=== PATIENT | female | born 1985 | race Caucasian/White ===

== ENCOUNTER 2020-10-21 08:06 | Emergency (ER) | payer OTHER, SELFPAY ==
[2020-10-21 08:16] VITALS: BP 121/84; PULSE 70; RESP 16; TEMP 36; O2SAT 100
[2020-10-21 08:22] VITALS: BP 121/84; PULSE 70; RESP 16; TEMP 36; O2SAT 100
--- NOTE | 2020-10-21 08:24 | ED.GENADULT ---
HPI - General Adult General Chief complaint: Dental/Oral Stated complaint: tooth pain/sinus infection Time Seen by Provider: 10/21/20 08:24 Source: patient and RN notes reviewed Mode of arrival: ambulatory Limitations: no limitations History of Present Illness HPI narrative: 35-year-old female presents with complaints of dental pain for the past 2 days. ?Alyssa reports she was treated at a local dentist office on Thursday10/15/2020 given 800mg of Ibuprofen and Clindamycin for dental complaints and an exposed nerve, called on Thursday10/18/20 due to increasing pain and instructed to seek care at local [facility], pain continues today. ?Alyssa reports increasing pain with treatment. Ibuprofen today at 06:00 without relief. ?Denies any drainage. ?No fever. ?No jaw swelling. ?No neck swelling. ?No limitation with speaking or swallowing. ?Has a history of dental caries. ?Patient reports recent dental care, scheduled appointment 11/10/20 for tooth extraction. ?No dental trauma. ?No oral lesions. ?Exacerbating factors consist of chewing on the LT side, eating and drinking cold items. ?No relieving factors. ?No dentures or bridges. ?Tolerating liquids well. ?LMP 10/17/20. ?Remains active. ?The patient reports she has not been diagnosed with COVID-19. The patient reports she received 2 [employer] COVID-19 vaccines. The patient reports she is not waiting for the results of a COVID-19 lab test. The patient reports she does not have weakness, fatigue, or myalgia. ?The patient reports she does not have a new or worsening cough or shortness of breath. ?The patient reports she does not have any rhinorrhea, congestion, loss of taste or smell, sore throat, and diarrhea. Denies recent traveling. ?Denies concerns for COVID-19 or exposures. ?At this time, the patient is not suspected of having COVID-19. Some parts of this dictation were generated by voice recognition software and may contain typographical and/or grammatical inaccuracies. Related Data Home Medications Medication Instructions Recorded Confirmed clindamycin HCl 300 mg PO TID 10/21/20 10/21/20 ibuprofen 800 mg PO DAILY 10/21/20 10/21/20 Allergies Allergy/AdvReac Type Severity Reaction Status Date / Time latex Allergy Intermediate Hives Verified 10/21/20 08:17 adhesive Allergy Unknown Hives Unverified 10/21/20 08:17 Penicillins Allergy Unknown Hives Verified 10/21/20 08:17 Review of Systems Review of Systems: CONSTITUTIONAL: Denies fever, chills, sweats. EYES: Denies visual changes, redness, discharge. ENT: Denies rhinorrhea, congestion, sore throat, otalgia. Complains of LT upper dental pain. CARDIOVASCULAR: Denies chest pain, palpitations, edema. RESPIRATORY: Denies dyspnea, wheezing, cough. GASTROINTESTINAL: Denies abdominal pain, nausea, vomiting, diarrhea. SKIN: Denies rash or itching. MUSCULOSKELETAL: Denies acute back pain, joint pain, or myalgia. NEUROLOGIC: Denies numbness or focal weakness. PSYCHIATRIC: Denies anxiety or depression. All systems reviewed & are unremarkable except as noted in HPI and below. [facility] Past Medical History Medical History (Updated 10/28/20 @ 16:17 by HOMER Diaz) delivery delivered HELLP syndrome Surgical History Surgical History (Updated 10/28/20 @ 16:17 by HOMER Diaz) H/O section X4 Family History Family History Mother Hypertension Father Patient's father is in good health Sibling Patient's sister is in good health Patient's brother is in good health Other Diabetes mellitus Family history of lung cancer Social History Social History (Updated 10/28/20 @ 16:19 by HOMER Diaz) Smoking status: Never smoker Tobacco type: cigarettes Second hand tobacco smoke exposure: No Alcohol intake: current Substance use: never Living arrangements: with family Occupation/Education: other Additional occupation/ed
== END 2020-10-21 08:53 | disposition home or self-care (01) ==
PROVIDERS: Emergency Provider Nurse Practitioner Family; PCP Family Medicine
DX: K08.89 Other specified disorders of teeth and supporting structures (principal); K02.9 Dental caries, unspecified; K04.7 Periapical abscess without sinus
CPT/HCPCS: 99213; G0463

== ENCOUNTER 2020-12-11 08:13 | Emergency (ER) | payer OTHER, SELFPAY ==
[2020-12-11 08:24] VITALS: BP 92/71; PULSE 69; RESP 16; TEMP 36.4; O2SAT 100
--- NOTE | 2020-12-11 08:24 | ED.FEMALEGU ---
HPI - Female Genitourinary General Chief complaint: Urogenital-Female Stated complaint: UTI Time Seen by Provider: 12/11/20 08:24 Source: patient and RN notes reviewed Mode of arrival: ambulatory Limitations: no limitations History of Present Illness HPI Narrative: 35-year-old female presents to the [facility] with complaints of a UTI. Patient states that she has had burning since yesterday, lower back pain. Denies abdominal pain or chest pain. No nausea vomiting or diarrhea. Denies fevers. MD elicited complaint: UTI Related Data Allergies Allergy/AdvReac Type Severity Reaction Status Date / Time latex Allergy Intermediate Hives Verified 12/11/20 08:36 adhesive Allergy Unknown Hives Unverified 12/11/20 08:36 Penicillins Allergy Unknown Hives Verified 12/11/20 08:36 Review of Systems Review of Systems: All systems reviewed & are unremarkable except as noted in HPI and below Constitutional: Constitutional: Reports no additional constitutional complaints Eyes: Eyes: Reports no additional eye complaints ENT: Reports system reviewed and no additional complaints, except as documented Cardiovascular: Cardiovascular: Reports no additional cardiovascular complaints Respiratory: Respiratory: Reports no additional respiratory complaints Gastrointestinal: Gastrointestinal: Reports no additional gastrointestinal complaints and Denies abdominal pain Genitourinary: Genitourinary: Reports as per HPI, Denies hematuria, Reports nocturia, Reports dysuria, Denies pelvic pain and Denies flank pain Musculoskeletal: Musculoskeletal: Reports as per HPI and Reports back pain (lower) Integumentary/Breasts: Skin/Breast: Reports system reviewed and no additional complaints, except as docu Neurologic: Reports system reviewed and no additional complaints, except as documented Psychiatric: Psychiatric: Reports no additional psychiatric complaints Allergic/Immunologic: Allergic/Immunologic: Reports no additional allergic/immunologic complaints [facility] Past Medical History Medical History delivery delivered HELLP syndrome Surgical History Surgical History H/O section X4 Family History Family History Mother Hypertension Father Patient's father is in good health Sibling Patient's sister is in good health Patient's brother is in good health Other Diabetes mellitus Family history of lung cancer Social History Social History (Reviewed 12/11/20 @ 08:25 by Noemy Aviles Smoking status: Never smoker Tobacco type: cigarettes Second hand tobacco smoke exposure: No Alcohol intake: current Substance use: never Additional occupation/education comments: homemaker Gender identity (if verbalized by the patient): Female Sexual Orientation (if Verbalized by the Patient): Straight or Heterosexual Comments At the time of my signature, I reviewed and agree with the nursing past medical, surgical, social, and family history. There is no relevant family history pertinent to the patient complaint. Exam Const: General: healthy appearing, no acute distress and alert Nutritional Appearance: well nourished and obese Orientation/consciousness: patient oriented x3 Limitations: no limitations HENMT: Head: normal to inspection Eyes: Pupils: Equal, round and reactive pupils present Neck: Neck: normal visual inspection, no lymphadenopathy and no meningeal signs Chest: Chest palpation & inspection: normal inspection of the chest Resp: Effort & Inspection: normal respiratory effort and no use of accessory muscles Auscultation: clear to auscultation bilaterally, no crackles, no rales, no rhonchi and no wheezes Cardio: Rate: regular rate Rhythm: regular rhythm GI: GI Palp: Yes Soft to palpation, No Tenderness to palpation present (GI), No Guarding due to palp
== END 2020-12-11 08:40 | disposition home or self-care (01) ==
PROVIDERS: Emergency Provider Nurse Practitioner; PCP Family Medicine
DX: N30.00 Acute cystitis without hematuria (principal)
CPT/HCPCS: 81003; 87086; 99213; G0463

== ENCOUNTER 2021-01-17 08:22 | Emergency (ER) | payer OTHER, SELFPAY ==
--- NOTE | 2021-01-17 08:28 | ED.FEMALEGU ---
HPI - Female Genitourinary General Chief complaint: Urogenital-Female Stated complaint: UTI Time Seen by Provider: 01/17/21 08:28 Source: patient, RN notes reviewed and old records reviewed Mode of arrival: ambulatory Limitations: no limitations History of Present Illness HPI Narrative: 35-year-old female presents to the [facility] with complaints of low back pain and urinary frequency. Patient states that her back pain never really got better. Her frequency did get better with antibiotic use. Denies nausea vomiting or diarrhea. Denies fevers. History of help syndrome during . Denies any other medical history. Has 4 small children does a lot of pushing pulling lifting. No numbness or tingling in extremities. No abdominal pain or chest pain. No burning with urination. No treatment prior to arrival MD elicited complaint: UTI Related Data Allergies Allergy/AdvReac Type Severity Reaction Status Date / Time latex Allergy Intermediate Hives Verified 01/17/21 08:33 adhesive Allergy Unknown Hives Unverified 01/17/21 08:33 Penicillins Allergy Unknown Hives Verified 01/17/21 08:33 Review of Systems Review of Systems: All systems reviewed & are unremarkable except as noted in HPI and below Constitutional: Constitutional: Reports no additional constitutional complaints Eyes: Eyes: Reports no additional eye complaints ENT: Reports system reviewed and no additional complaints, except as documented Respiratory: Respiratory: Reports no additional respiratory complaints Genitourinary: Genitourinary: Reports as per HPI and Reports nocturia Musculoskeletal: Musculoskeletal: Reports as per HPI and Reports back pain Integumentary/Breasts: Skin/Breast: Reports system reviewed and no additional complaints, except as docu Neurologic: Reports system reviewed and no additional complaints, except as documented Psychiatric: Psychiatric: Reports no additional psychiatric complaints Allergic/Immunologic: Allergic/Immunologic: Reports no additional allergic/immunologic complaints PMF Past Medical History Medical History delivery delivered HELLP syndrome Surgical History Surgical History H/O section X4 Family History Family History Mother Hypertension Father Patient's father is in good health Sibling Patient's sister is in good health Patient's brother is in good health Other Diabetes mellitus Family history of lung cancer Social History Social History Smoking status: Never smoker Tobacco type: cigarettes Second hand tobacco smoke exposure: No Alcohol intake: current Substance use: never Additional occupation/education comments: homemaker Gender identity (if verbalized by the patient): Female Sexual Orientation (if Verbalized by the Patient): Straight or Heterosexual Comments At the time of my signature, I reviewed and agree with the nursing past medical, surgical, social, and family history. There is no relevant family history pertinent to the patient complaint. Exam Const: General: healthy appearing, no acute distress and alert Nutritional Appearance: well nourished and obese Orientation/consciousness: patient oriented x3 Limitations: no limitations HENMT: Head: normal to inspection Ears: external ears normal Eyes: Pupils: Equal, round and reactive pupils present Neck: Neck: normal visual inspection, no lymphadenopathy and no meningeal signs Chest: Chest palpation & inspection: normal inspection of the chest Resp: Effort & Inspection: normal respiratory effort and no use of accessory muscles Auscultation: clear to auscultation bilaterally, no crackles, no rales, no rhonchi and no wheezes Cardio: Rate: regular rate Rhythm: regular rhythm GI: GI Palp: Yes Soft to
[2021-01-17 08:36] VITALS: BP 124/86; PULSE 72; RESP 16; TEMP 37; O2SAT 99
== END 2021-01-17 08:58 | disposition home or self-care (01) ==
PROVIDERS: Emergency Provider Nurse Practitioner; PCP Family Medicine
DX: M54.50 Low back pain, unspecified (principal)
CPT/HCPCS: 81003; 99213; G0463

== ENCOUNTER 2021-05-05 08:14 | Emergency (ER) | payer OTHER, SELFPAY ==
[2021-05-05 08:23] VITALS: BP 117/82; PULSE 79; RESP 18; TEMP 36.7; O2SAT 100
--- NOTE | 2021-05-05 08:29 | ED.URI ---
HPI - URI/Sore Throat General Chief Complaint: Upper Respiratory Infection Stated Complaint: Cough,Runny Nose Time Seen by Provider: 05/05/21 08:25 Source: patient, family, RN notes reviewed and old records reviewed Mode of arrival: ambulatory Limitations: no limitations History of Present Illness HPI Narrative: 36-year-old female presents to the [facility] with complaints of 10 days of cough, sinus congestion. Has tried to kidney [id number] products which is not helping her. Denies any fevers, chest pain, abdominal pain. No nausea vomiting or diarrhea. MD elicited complaint: cough, rhinorrhea, nasal congestion and sinus pain Related Data Allergies Allergy/AdvReac Type Severity Reaction Status Date / Time latex Allergy Intermediate Hives Verified 05/05/21 08:37 adhesive Allergy Unknown Hives Unverified 05/05/21 08:37 Penicillins Allergy Unknown Hives Verified 05/05/21 08:37 Review of Systems Review of Systems: All systems reviewed & are unremarkable except as noted in HPI and below Constitutional: Constitutional: Reports no additional constitutional complaints, Denies chills, Denies fever(s) and Denies headache(s) Eyes: Eyes: Reports no additional eye complaints ENT: Reports as per HPI, Denies vertigo, Denies dizziness, Denies headache(s), Reports nasal congestion, Reports sinus pressure and Denies sore throat Cardiovascular: Cardiovascular: Reports no additional cardiovascular complaints, Denies chest pain, Denies syncope, Denies rapid heart rate and Denies dyspnea Respiratory: Respiratory: Reports as per HPI, Reports cough, Denies dyspnea and Denies wheezing Gastrointestinal: Gastrointestinal: Reports no additional gastrointestinal complaints, Denies abdominal pain, Denies diarrhea, Denies nausea and Denies vomiting Musculoskeletal: Musculoskeletal: Reports no additional musculoskeletal complaints and Denies numbness Integumentary/Breasts: Skin/Breast: Reports system reviewed and no additional complaints, except as docu Neurologic: Reports system reviewed and no additional complaints, except as documented, Denies vertigo, Denies dizziness, Denies syncope, Denies headache(s), Denies focal weakness and Denies numbness Psychiatric: Psychiatric: Reports no additional psychiatric complaints Allergic/Immunologic: Allergic/Immunologic: Reports no additional allergic/immunologic complaints and Denies wheezing PMFSH Past Medical History Medical History delivery delivered HELLP syndrome Surgical History Surgical History H/O section X4 Family History Family History Mother Hypertension Father Patient's father is in good health Sibling Patient's sister is in good health Patient's brother is in good health Other Diabetes mellitus Family history of lung cancer Social History Social History Smoking status: Never smoker Tobacco type: cigarettes Second hand tobacco smoke exposure: No Alcohol intake: current Substance use: never Additional occupation/education comments: homemaker Gender identity (if verbalized by the patient): Female Sexual Orientation (if Verbalized by the Patient): Straight or Heterosexual Comments At the time of my signature, I reviewed and agree with the nursing past medical, surgical, social, and family history. There is no relevant family history pertinent to the patient complaint. Exam Const: General: cooperative, healthy appearing, no acute distress, well developed and alert Nutritional Appearance: well nourished and obese Orientation/consciousness: patient oriented x3 Limitations: no limitations HENMT: Head: normal to inspection Ears: external ears normal, EAC's normal and TM abnormal with fluid behind the TM bilateral General no
== END 2021-05-05 09:04 | disposition home or self-care (01) ==
PROVIDERS: Emergency Provider Nurse Practitioner; PCP Family Medicine
DX: J40 Bronchitis, not specified as acute or chronic (principal)
CPT/HCPCS: 99213; G0463

== ENCOUNTER 2021-05-11 08:01 | Emergency (ER) | payer OTHER, SELFPAY ==
--- NOTE | 2021-05-11 08:08 | ED.URI ---
HPI - URI/Sore Throat General Chief Complaint: Upper Respiratory Infection Stated Complaint: uri Time Seen by Provider: 05/11/21 08:05 Source: patient and RN notes reviewed History of Present Illness HPI Narrative: Patient is a 36-year-old female who presents the urgent care with complaints of persistent symptoms since her last visit. Patient was given steroids, antibiotics, inhaler, antihistamines. Patient denies of any fever. States that she still feels terrible . Patient states that she has felt that something has been in her throat. Patient states that she read on [employer] to drink Coca-Cola , which did not help with the lump in her throat. Patient states that today is her last day of doxycycline and she is taking the medications that she has been prescribed consistently. Patient denies of any new symptoms. No other acute complaints. Denies of ill contacts. No acute distress noted. Patient has not followed up with her doctor. Patient aware of the plan of care. Some parts of this dictation were generated by voice recognition software and may contain typographical and/or grammatical inaccuracies. Related Data Allergies Allergy/AdvReac Type Severity Reaction Status Date / Time latex Allergy Intermediate Hives Verified 05/11/21 08:05 adhesive Allergy Unknown Hives Verified 05/11/21 08:05 Penicillins Allergy Unknown Hives Verified 05/11/21 08:05 Review of Systems Review of Systems: CONSTITUTIONAL: Denies fever, chills, or sweats. EYES: Denies visual changes, redness, or discharge. ENT: Denies rhinorrhea, congestion, otalgia. Reports of sore throat CARDIOVASCULAR: Denies chest pain, palpitations, or edema. RESPIRATORY: Denies cough or dyspnea. GASTROINTESTINAL: Denies abdominal pain, nausea, vomiting, or diarrhea. GENITOURINARY: Denies dysuria or hematuria. SKIN: Denies rash or itching. MUSCULOSKELETAL: Denies back pain, joint pain, or myalgia. NEUROLOGIC: Denies headache, numbness, or weakness. All other systems reviewed are negative, except as documented in HPI. [facility] Past Medical History Medical History delivery delivered HELLP syndrome Surgical History Surgical History H/O section X4 Family History Family History Mother Hypertension Father Patient's father is in good health Sibling Patient's sister is in good health Patient's brother is in good health Other Diabetes mellitus Family history of lung cancer Social History Social History Smoking status: Never smoker Tobacco type: cigarettes Second hand tobacco smoke exposure: No Alcohol intake: current Substance use: never Additional occupation/education comments: homemaker Gender identity (if verbalized by the patient): Female Sexual Orientation (if Verbalized by the Patient): Straight or Heterosexual Comments At the time of my signature, I reviewed and agree with the nursing past medical, surgical, social, and family history. There is no relevant family history pertinent to the patient complaint. Exam Narrative: GENERAL: This is a well-nourished, well-developed patient, in no apparent distress. HEAD: normocephalic, atraumatic. EYES: PERRL. Sclera clear/white. Vision is grossly intact. EARS: External ears normal, auditory canals clear and without drainage, TMs normal without perforation. Hearing grossly intact. NOSE: External nose normal with no obvious nasal discharge, nares without redness, no rhinorrhea. THROAT: Mucous membranes moist NECK: Neck supple SKIN: warm, intact with no suspicious lesions or rash, good texture and turgor. NEURO: awake, alert, and oriented to person, place and time. There were no obvious focal neurologic abnormalities. EXTREMITIES: No clubbing, cyanosis, or edema. C
[2021-05-11 08:11] VITALS: BP 124/63; PULSE 93; RESP 16; TEMP 36.6; O2SAT 99
== END 2021-05-11 08:25 | disposition left against medical advice (07) ==
PROVIDERS: Emergency Provider Nurse Practitioner Family; PCP Family Medicine
DX: J02.9 Acute pharyngitis, unspecified (principal)
CPT/HCPCS: 99211; G0463

== ENCOUNTER 2021-06-19 08:39 | Emergency (ER) | payer OTHER, SELFPAY ==
[2021-06-19 08:49] VITALS: BP 132/77; PULSE 84; RESP 20; TEMP 36.6; O2SAT 100
--- NOTE | 2021-06-19 08:50 | ED.URI ---
HPI - URI/Sore Throat General Chief Complaint: Upper Respiratory Infection Stated Complaint: cough Time Seen by Provider: 06/19/21 08:50 Source: patient and RN notes reviewed Mode of arrival: ambulatory Limitations: no limitations History of Present Illness HPI Narrative: 36-year-old female presented for complaint of sinus congestion, cough, postnasal drainage and occasional wheezing. Symptoms started about 3 days ago. cough worse at night. She states it feels like the last time she had bronchitis. She states her daughter has been sick about a week ago. Denies nausea, vomiting, diarrhea, fever or chills. She is vaccinated for COVID. She is not vaccinated for the flu. MD elicited complaint: cough Related Data Allergies Allergy/AdvReac Type Severity Reaction Status Date / Time latex Allergy Intermediate Hives Verified 06/19/21 08:41 adhesive Allergy Unknown Hives Verified 06/19/21 08:41 Penicillins Allergy Unknown Hives Verified 06/19/21 08:41 Review of Systems Review of Systems: CONSTITUTIONAL: Endorses malaise, denies chills, sweats, fever EYES: Denies visual changes, redness, or discharge ENT: Reports rhinorrhea, congestion, sinus pain, otalgia, sore throat CARDIOVASCULAR: Denies chest pain, palpitations, edema RESPIRATORY: Reports cough, post nasal drainage. Denies dyspnea GASTROINTESTINAL: Denies abdominal pain, nausea, vomiting, diarrhea SKIN: Denies rash or itching MUSCULOSKELETAL: Endorses myalgia NEUROLOGIC: Denies headache PMFSH Past Medical History Medical History delivery delivered HELLP syndrome Surgical History Surgical History H/O section X4 Family History Family History Mother Hypertension Father Patient's father is in good health Sibling Patient's sister is in good health Patient's brother is in good health Other Diabetes mellitus Family history of lung cancer Social History Social History Smoking status: Never smoker Tobacco type: cigarettes Second hand tobacco smoke exposure: No Alcohol intake: current Substance use: never Additional occupation/education comments: homemaker Gender identity (if verbalized by the patient): Female Sexual Orientation (if Verbalized by the Patient): Straight or Heterosexual Exam Narrative: GENERAL: Ill-appearing HEAD: Normocephalic EYES: conjunctivae clear ENT: Mucous membranes moist. TM pearly rivera with dull light reflex bilaterally; no tragal tenderness. Oropharynx erythematous without lesions or exudate, no drooling, no hoarseness, no trismus, uvula midline. NECK: Supple. No lymphadenopathy CHEST: Clear to auscultation, breath sounds equal. No wheezing, rhonchi, rales, or stridor. No respiratory distress HEART: Regular rate and rhythm. No murmur heard. SKIN: Warm, dry, no rash. NEURO: Alert and oriented x3. PSYCH: Normal mood and affect Course Course Emergency Course: Patient is aware of diagnosis, understands and agrees to treatment plan. Anticipatory guidance given. Patient agrees to follow-up as directed and is aware of reasons to seek care at the emergency department. Portions of this record may have been created with voice recognition software Level of Care: Express Care Visit Vital Signs Vital signs: reviewed MDM - URI/Sore Throat MDM Narrative Medical decision making narrative: Pt declines flu test since she is out of the window for tamiflu. She is advised to f/u with PCP given her recurrent episodes of bronchitis. She is advised on supportive treatment. Differential Diagnosis Differential diagnosis: Likely upper respiratory infection, sinusitis, viral infection, bronchitis and influenza Discharge Plan Discharge Clinical Impression: Bronchitis Patient Disposition
== END 2021-06-19 09:05 | disposition home or self-care (01) ==
PROVIDERS: Emergency Provider Nurse Practitioner Family; PCP Family Medicine
DX: J40 Bronchitis, not specified as acute or chronic (principal)
CPT/HCPCS: 99213; G0463

== ENCOUNTER 2022-02-10 08:24 | Emergency (ER) | payer OTHER, SELFPAY ==
[2022-02-10 08:45] VITALS: BP 120/76; PULSE 67; RESP 12; TEMP 36.2; O2SAT 100
--- NOTE | 2022-02-10 08:47 | ED.SKABFB ---
HPI - Skin/Abscess/Foreign Bdy General Chief complaint: Skin/Abscess/Foreign Body Stated complaint: Wound on Abdomen Time Seen by Provider: 02/10/22 08:47 Source: patient, RN notes reviewed and old records reviewed Mode of arrival: ambulatory Limitations: no limitations History of Present Illness HPI narrative: 31 year female presents to the [facility] with complaints red raised area that she noticed about a week ago. Tried scrubbing yesterday and noticed it became more red and inflamed last night. Small fluctuant area noted to the area. Left lower quadrant under the pannus Denies fevers. Related Data Allergies Allergy/AdvReac Type Severity Reaction Status Date / Time latex Allergy Intermediate Hives Verified 02/10/22 08:50 adhesive Allergy Unknown Hives Verified 02/10/22 08:50 Penicillins Allergy Unknown Hives Verified 02/10/22 08:50 Review of Systems Review of Systems: All systems reviewed & are unremarkable except as noted in HPI and below Constitutional: Constitutional: Reports no additional constitutional complaints Eyes: Eyes: Reports no additional eye complaints ENT: Reports system reviewed and no additional complaints, except as documented Cardiovascular: Cardiovascular: Reports no additional cardiovascular complaints, Denies chest pain and Denies dyspnea Respiratory: Respiratory: Reports no additional respiratory complaints, Denies chest congestion, Denies cough and Denies dyspnea Gastrointestinal: Gastrointestinal: Reports no additional gastrointestinal complaints, Denies abdominal pain, Denies nausea and Denies vomiting Musculoskeletal: Musculoskeletal: Reports no additional musculoskeletal complaints Integumentary/Breasts: Skin/Breast: Reports as per HPI Neurologic: Reports system reviewed and no additional complaints, except as documented Psychiatric: Psychiatric: Reports no additional psychiatric complaints Allergic/Immunologic: Allergic/Immunologic: Reports no additional allergic/immunologic complaints [facility] Past Medical History Medical History (Updated 02/10/22 @ 10:56 by Noemy Churchill APRN) Anxiety disorder, unspecified delivery delivered Dietary counseling and surveillance (09/04/15) Generalized anxiety disorder HELLP syndrome Other viral warts Overweight (06/04/15) Rhinitis, chronic Tooth pain Surgical History Surgical History H/O section X4 Family History Family History Mother Hypertension Father Patient's father is in good health Sibling Patient's sister is in good health Patient's brother is in good health Other Diabetes mellitus Family history of lung cancer Social History Social History Smoking status: Never smoker Tobacco type: cigarettes Second hand tobacco smoke exposure: No Alcohol intake: current Substance use: never Additional occupation/education comments: homemaker Gender identity (if verbalized by the patient): Female Sexual Orientation (if Verbalized by the Patient): Straight or Heterosexual Comments At the time of my signature, I reviewed and agree with the nursing past medical, surgical, social, and family history. There is no relevant family history pertinent to the patient complaint. Exam Const: General: cooperative, healthy appearing, comfortable, no acute distress, well developed, alert and well nourished Nutritional Appearance: well nourished and obese Orientation/consciousness: patient oriented x3 Limitations: no limitations HENMT: Head: normal to inspection Ears: hearing grossly normal bilaterally and external ears normal Face/Nose/Sinus: Normal external nose present, Normal nares present, Normal nasal mucous membranes and turbinates present and normal facial exam Face and sinus: normal facial exam Mouth: Yes Normal oral and palatal mucosa
== END 2022-02-10 09:08 | disposition home or self-care (01) ==
PROVIDERS: Emergency Provider Nurse Practitioner; PCP Family Medicine
DX: L03.311 Cellulitis of abdominal wall (principal); L02.211 Cutaneous abscess of abdominal wall
CPT/HCPCS: 10160; 87070; 87147; 87181; 87186; 87205; 99213; G0463

== ENCOUNTER 2022-06-16 15:21 | Emergency (ER) | payer OTHER, SELFPAY ==
[2022-06-16 15:30] VITALS: BP 122/76; PULSE 84; RESP 16; TEMP 36.7; O2SAT 99
--- NOTE | 2022-06-16 16:15 | ED.URI ---
HPI - URI/Sore Throat General Chief Complaint: Upper Respiratory Infection Stated Complaint: Sinus Time Seen by Provider: 06/16/22 15:54 Source: patient and RN notes reviewed Mode of arrival: ambulatory Limitations: no limitations History of Present Illness HPI Narrative: Patient presents today complaining of a 3-4 day history of headache, nasal congestion, photophobia. She currently her pain 7/10. Believe she has a sinus infection. She has been taking Tylenol cold and Sinus without much relief. Denies cough, fever, sore throat. She is also complaining of a possible infection to her nose piercing. She got her nose pierced 3 weeks ago on the right side and states 3 days ago it became sore. She contacted the peer sore and was instructed to use saline to clean the inside and outside portion of the nose and states that when she clean the inside of the nose with a Q-tip she had some drainage. She currently rates this pain 5/10. Related Data Allergies Allergy/AdvReac Type Severity Reaction Status Date / Time latex Allergy Intermediate Hives Verified 06/16/22 15:50 adhesive Allergy Unknown Hives Verified 06/16/22 15:50 Penicillins Allergy Unknown Hives Verified 06/16/22 15:50 Review of Systems Review of Systems: CONSTITUTIONAL: Denies body aches, fever, chills, or sweats. EYES: Denies visual changes, redness, or discharge.+ photophobia ENT: Denies rhinorrhea,sore throat, or otalgia.+ congestion, infection to nose piercing CARDIOVASCULAR: Denies chest pain, palpitations, or edema. RESPIRATORY: Denies cough or dyspnea. GASTROINTESTINAL: Denies abdominal pain, nausea, vomiting, or diarrhea. GENITOURINARY: Denies dysuria or hematuria. SKIN: Denies rash, itching, or wounds. MUSCULOSKELETAL: Denies back pain, joint pain, or myalgia. NEUROLOGIC: Denies numbness, tingling, or weakness.+ headache PSYCH: Denies depression or anxiety. [facility] Past Medical History Medical History Anxiety disorder, unspecified delivery delivered Dietary counseling and surveillance (09/04/15) Generalized anxiety disorder HELLP syndrome Other viral warts Overweight (06/04/15) Rhinitis, chronic Tooth pain Surgical History Surgical History H/O section X4 Family History Family History Mother Hypertension Father Patient's father is in good health Sibling Patient's sister is in good health Patient's brother is in good health Other Diabetes mellitus Family history of lung cancer Social History Social History Smoking status: Never smoker Tobacco type: cigarettes Second hand tobacco smoke exposure: No Alcohol intake: current Substance use: never Living arrangements: with family 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 Please see nursing chart for further information. There is no relevant family history pertinent to the presenting complaint Exam Narrative: GENERAL: Well-appearing, well-nourished, and in no acute distress. HEAD: Normocephalic, atraumatic. EYES: EOMI. PERRL. + bilateral photophobia. No redness or drainage. Conjunctivae normal. ENT: Mucous membranes pink and moist. Nares congested. No rhinorrhea. TMs normal bilaterally. Throat normal. Uvula midline. Right nose piercing does not appear infected. There is slight edema surrounding the piercing on the exterior portion. Anterior right nare appears normal around the piercing without any obv
== END 2022-06-16 16:38 | disposition home or self-care (01) ==
PROVIDERS: Emergency Provider Nurse Practitioner; PCP Physician Assistant
DX: J30.9 Allergic rhinitis, unspecified (principal)
CPT/HCPCS: 99213; G0463

== ENCOUNTER 2022-08-16 13:36 | Emergency (ER) | payer OTHER, SELFPAY ==
[2022-08-16 13:52] VITALS: BP 126/77; PULSE 74; RESP 16; TEMP 36.9; O2SAT 99
--- NOTE | 2022-08-16 14:20 | ED.FEMALEGU ---
HPI - Female Genitourinary General Chief complaint: Urogenital-Female Stated complaint: UTI Source: patient and RN notes reviewed History of Present Illness HPI Narrative: 37 yo F Presents to urgent care with complaints of burning with urination, urinary frequency and urgency, and hematuria. Pt states her symptoms started 3 days ago but today is when the hematuria started. Pt does admit to falling on to her buttocks twice this past week; once from sitting on a bench that collapsed and the second from slipping on the driveway. Pt denies any significant pain from these falls but reports being sore in her lower back. Denies any flank pain, abdominal pain, fevers, chills, N/V/D. Related Data Allergies Allergy/AdvReac Type Severity Reaction Status Date / Time latex Allergy Intermediate Hives Verified 08/16/22 13:52 adhesive Allergy Unknown Hives Verified 08/16/22 13:52 Penicillins Allergy Unknown Hives Verified 08/16/22 13:52 Review of Systems Review of Systems: CONSTITUTIONAL: Denies fever, chills, or sweats. EYES: Denies visual changes, redness, or discharge. ENT: Denies otalgia and sore throat CARDIOVASCULAR: Denies chest pain, palpitations, or edema. RESPIRATORY: Denies cough or dyspnea. GASTROINTESTINAL: Denies abdominal pain, nausea, vomiting, or diarrhea. GENITOURINARY: dysuria or hematuria. SKIN: Denies rash or itching. MUSCULOSKELETAL: Denies back pain, joint pain, or myalgia. NEUROLOGIC: Denies headache, numbness, or weakness. Pertinent positives per HPI. [facility], [facility] Past Medical History Medical History Anxiety disorder, unspecified delivery delivered Dietary counseling and surveillance (09/04/15) Generalized anxiety disorder HELLP syndrome Other viral warts Overweight (06/04/15) Rhinitis, chronic Tooth pain Surgical History Surgical History H/O section X4 Family History Family History Mother Hypertension Father Patient's father is in good health Sibling Patient's sister is in good health Patient's brother is in good health Other Diabetes mellitus Family history of lung cancer Social History Social History Smoking status: Never smoker Tobacco type: cigarettes Second hand tobacco smoke exposure: No Alcohol intake: current Substance use: never Living arrangements: with family 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 There is no relevant family history pertinent to the patient complaint. Exam Narrative: GENERAL: This is a well-nourished, well-developed patient, in no apparent distress. HEAD: normocephalic, atraumatic. EYES: Sclera clear/white. Vision is grossly intact. EARS: External ears normal, auditory canals clear and without drainage, TMs normal without perforation. Hearing grossly intact. NOSE: External nose normal with no obvious nasal discharge, nares without redness, no rhinorrhea. THROAT: Mucous membranes moist, posterior pharynx clear. NECK: Neck supple, non-tender without lymphadenopathy, masses or thyromegaly. CARDIOVASCULAR: Regular rate and rhythm without murmurs, gallops, or rubs. RESPIRATORY: Clear to auscultation. Breath sounds equal bilaterally. No wheezes, rales, or rhonchi. GASTROINTESTINAL: Abdomen soft, non-tender, nondistended. Bowel sounds are active. No hepato-splenomegaly, or palpable masses. No guarding. SKIN: warm, intact with no suspicious lesions or rash, good texture and turgor. NEURO: a
== END 2022-08-16 14:47 | disposition home or self-care (01) ==
PROVIDERS: Emergency Provider Nurse Practitioner Family; PCP Family Medicine
DX: R31.9 Hematuria, unspecified (principal)
CPT/HCPCS: 81003; 87086; 99213; G0463

== ENCOUNTER 2023-04-28 19:02 | Emergency (ER) | payer OTHER, SELFPAY ==
--- NOTE | 2023-04-28 19:05 | ED.ANXIETY ---
HPI - Anxiety General Stated Complaint: Anxiety Time Seen by Provider: 04/28/23 19:04 Source: patient Mode of arrival: ambulatory Limitations: no limitations History of Present Illness HPI narrative: Alyssa is a 38-year-old female patient presenting to the clinic today with complaints of runny nose and nasal congestion that is been off and on for the past few days. She reports no known fever, chills, body aches, flu, chest pain, shortness of breath, or chest congestion. Related Data Allergies Allergy/AdvReac Type Severity Reaction Status Date / Time latex Allergy Intermediate Hives Verified 08/16/22 13:52 adhesive Allergy Unknown Hives Verified 08/16/22 13:52 Penicillins Allergy Unknown Hives Verified 08/16/22 13:52 Review of Systems Review of Systems: Pertinent positives per HPI. Patient denies any fever, chills, rash, headache, visual changes, dizziness, cough, sore throat, shortness of breath, chest pain, palpitations, nausea, vomiting, diarrhea, constipation, abdominal pain, or any urinary issues. PMFSH Past Medical History Medical History Anxiety disorder, unspecified delivery delivered Dietary counseling and surveillance (09/04/15) Generalized anxiety disorder HELLP syndrome Other viral warts Overweight (06/04/15) Rhinitis, chronic Tooth pain Surgical History Surgical History H/O section X4 Family History Family History Mother Hypertension Father Patient's father is in good health Sibling Patient's sister is in good health Patient's brother is in good health Other Diabetes mellitus Family history of lung cancer Social History Social History Smoking status: Never smoker Tobacco type: cigarettes Second hand tobacco smoke exposure: No Alcohol intake: current Substance use: never Living arrangements: with family 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 There is no relevant family history pertinent to the patient complaint. Exam Narrative: General: Well-developed, well nourished, in no apparent distress Head: Normocephalic, atraumatic Eyes: Pupils equally round and reactive to light bilaterally, EOM intact, sclera and conjunctive clear, no discharge, lids normal Ears: TMs intact and clear, ear canals clear, no drainage, grossly hearing normal. Nose: Nares patent, clear nasal discharge, mild inflammation, no sinus tenderness. Mouth: Oropharynx without lesions or masses, good dentition, MMM. Neck: Supple, trachea midline, no enlargement of anterior or posterior cervical nodes, no thyroid masses or goiter palpable. Cardio: Regular rate and rhythm, s1 and s2 normal, no murmur appreciated. Resp: Clear to auscultation bilaterally anteriorly and posteriorly, no rhonchi, rales, wheezing or rubs Course Course Emergency Course: Portions of this record may have been created with voice recognition software. Level of Care: Express Care Visit Vital Signs Vital signs: Vital signs reviewed MDM - Anxiety MDM Narrative Medical decision making narrative: At the time of visit patient is resting comfortably on the exam table. Patient appears to be nontoxic. Plan: I suspect patient has allergic rhinitis. Supportive measures were discussed with the patient and they voiced understanding discharge instructions and agrees to treatment plan. Return precautions reviewed Differential Diagnosis Differential diagnosis: Likely acute a
[2023-04-28 19:12] VITALS: BP 127/86; PULSE 107; RESP 16; TEMP 37.2; O2SAT 99
== END 2023-04-28 19:27 | disposition home or self-care (01) ==
PROVIDERS: Emergency Provider Nurse Practitioner Family; PCP Family Medicine
DX: J30.9 Allergic rhinitis, unspecified (principal)
CPT/HCPCS: 99211; G0463

== ENCOUNTER 2023-06-22 09:31 | Emergency (ER) | payer OTHER, MEDICAID, SELFPAY ==
--- NOTE | 2023-06-22 09:36 | ED.URI ---
HPI - URI/Sore Throat General Chief Complaint: Upper Respiratory Infection Stated Complaint: Cough Time Seen by Provider: 06/22/23 09:43 Source: patient, RN notes reviewed and old records reviewed Mode of arrival: ambulatory Limitations: no limitations History of Present Illness HPI Narrative: 38-year-old female presents to the [facility] with complaints of a cough, chills, generalized fatigue, sneezing and sore throat that started mid day yesterday. Did take NyQuil last night. No other treatment prior to arrival. Has not measured temperature. Onset (ago): day(s) (1, less than 24 hours) Related Data Home Medications Medication Instructions Recorded Confirmed cetirizine 10 mg tablet 10 mg PO DAILY PRN Allergy Symptoms 06/22/23 06/22/23 clonazepam 1 mg tablet 1 mg PO BID 06/22/23 06/22/23 Allergies Allergy/AdvReac Type Severity Reaction Status Date / Time latex Allergy Intermediate Hives Verified 06/22/23 09:38 adhesive Allergy Unknown Hives Verified 06/22/23 09:38 Penicillins Allergy Unknown Hives Verified 06/22/23 09:38 Review of Systems Review of Systems: All systems reviewed & are unremarkable except as noted in HPI and below Constitutional: Constitutional: Reports as per HPI, Reports body ache(s), Reports chills and Reports fatigue Eyes: Eyes: Reports no additional eye complaints ENT: Reports as per HPI and Reports sore throat Cardiovascular: Cardiovascular: Reports no additional cardiovascular complaints, Denies chest pain and Denies dyspnea Respiratory: Respiratory: Reports as per HPI, Denies chest congestion, Reports cough and Denies dyspnea Gastrointestinal: Gastrointestinal: Reports no additional gastrointestinal complaints, Denies abdominal pain, Denies nausea and Denies vomiting Musculoskeletal: Musculoskeletal: Reports no additional musculoskeletal complaints Integumentary/Breasts: Skin/Breast: Reports system reviewed and no additional complaints, except as docu Neurologic: Reports system reviewed and no additional complaints, except as documented Psychiatric: Psychiatric: Reports no additional psychiatric complaints Allergic/Immunologic: Allergic/Immunologic: Reports no additional allergic/immunologic complaints PMFSH Past Medical History Medical History Anxiety disorder, unspecified delivery delivered Dietary counseling and surveillance (09/04/15) Generalized anxiety disorder HELLP syndrome Other viral warts Overweight (06/04/15) Rhinitis, chronic Tooth pain Surgical History Surgical History H/O section X4 Family History Family History Mother Hypertension Father Patient's father is in good health Sibling Patient's sister is in good health Patient's brother is in good health Other Diabetes mellitus Family history of lung cancer Social History Social History Smoking status: Never smoker Tobacco type: cigarettes Second hand tobacco smoke exposure: No Alcohol intake: current Substance use: never Living arrangements: with family 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 There is no relevant family history pertinent to the patient complaint. Exam Const: General: cooperative, healthy appearing, comfortable, no acute distress, well developed, alert and well nourished Nutritional Appearance: well nourished and obese Orientation/consciousness: patient oriented x3 Limitations: no limitations HENMT: Head: normal to inspection
[2023-06-22 09:46] VITALS: BP 108/76; PULSE 115; RESP 16; TEMP 37; O2SAT 100
== END 2023-06-22 10:10 | disposition home or self-care (01) ==
PROVIDERS: Emergency Provider Nurse Practitioner; PCP Family Medicine
DX: R09.82 Postnasal drip (principal); J06.9 Acute upper respiratory infection, unspecified; Z20.822 Contact with and (suspected) exposure to COVID-19; F41.1 Generalized anxiety disorder
CPT/HCPCS: 87081; 87426; 87804; 87880; 99213; G0463

== ENCOUNTER 2023-12-07 15:39 | Emergency (ER) | payer OTHER, MEDICAID, SELFPAY ==
[2023-12-07 15:48] VITALS: BP 120/78; PULSE 72; RESP 20; TEMP 36.7; O2SAT 100
--- NOTE | 2023-12-07 16:18 | ED.URI ---
HPI - URI/Sore Throat General Chief Complaint: Upper Respiratory Infection Stated Complaint: Cough Time Seen by Provider: 12/07/23 15:55 Source: patient Mode of arrival: ambulatory Limitations: no limitations History of Present Illness HPI Narrative: Alyssa is a 38-year-old female patient presenting to the clinic today with complaints of productive cough, sinus pressure, congestion, and wheezing. She reports that she has had symptoms for 10 days. She is coughing up green and yellow phlegm as well as blowing yellow and green phlegm out of her nose. 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 MD elicited complaint: cough, rhinorrhea, nasal congestion, sinus pain and other Related Data Allergies Allergy/AdvReac Type Severity Reaction Status Date / Time latex Allergy Intermediate Hives Verified 12/07/23 16:13 adhesive Allergy Unknown Hives Verified 12/07/23 16:13 Penicillins Allergy Unknown Hives Verified 12/07/23 16:13 Review of Systems Review of Systems: Pertinent positives per HPI. Patient denies any fever, chills, rash, visual changes, dizziness, shortness of breath, chest pain, palpitations, nausea, vomiting, diarrhea, constipation, abdominal pain, or any urinary issues. PMFSH Past Medical History Medical History Anxiety disorder, unspecified delivery delivered Dietary counseling and surveillance (09/04/15) Generalized anxiety disorder HELLP syndrome Other viral warts Overweight (06/04/15) Rhinitis, chronic Tooth pain Surgical History Surgical History H/O section X4 Family History Family History Mother Hypertension Father Patient's father is in good health Sibling Patient's sister is in good health Patient's brother is in good health Other Diabetes mellitus Family history of lung cancer Social History Social History Smoking status: Never smoker Tobacco type: cigarettes Second hand tobacco smoke exposure: No Alcohol intake: current Substance use: never Living arrangements: with family 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 There is no relevant family history pertinent to the patient complaint. Exam Narrative: General: Well-developed, well nourished, in no apparent distress Head: Normocephalic, atraumatic Eyes: Pupils equally round and reactive to light bilaterally, EOM intact, sclera and conjunctive clear, no discharge, lids normal Ears: TMs intact and congested, ear canals clear, no drainage, grossly hearing normal. Nose: Nares patent, yellow nasal discharge, moderate inflammation, maxillary sinus tenderness. Mouth: Oral pharynx without lesions or masses, good dentition, MMM. Postnasal drip Neck: Supple, trachea midline, no enlargement of anterior or posterior cervical nodes, no thyroid masses or goiter palpable. Cardio: Regular rate and rhythm, s1 and s2 normal, no murmur appreciated. Resp: Diminished in the bases, no rhonchi, rales, wheezing or rubs Course Course Emergency Course: Portions of this record may have been created with voice recognition software. Level of Care: Express Care Visit Vital Signs Vital signs: Vital Signs Temperature 36.7 C 12/07/23 15:48 Pulse Rate 72 12/07/23 15:48 Respiratory Rate 20 12/07/23 15:48 Blood Pressure 120/78 12/07/23 15:48 Pulse Oximetry 100 10/0
== END 2023-12-07 16:35 | disposition home or self-care (01) ==
PROVIDERS: Emergency Provider Nurse Practitioner Family; PCP Nurse Practitioner Family
DX: J40 Bronchitis, not specified as acute or chronic (principal); J01.00 Acute maxillary sinusitis, unspecified
CPT/HCPCS: 99213; G0463

== ENCOUNTER 2023-12-18 15:57 | Emergency (ER) | payer OTHER, MEDICAID, SELFPAY ==
[2023-12-18 16:11] VITALS: BP 122/75; PULSE 84; RESP 16; TEMP 37.2; O2SAT 99
--- NOTE | 2023-12-18 17:20 | ED.URI ---
HPI - URI/Sore Throat General Chief Complaint: Eye Problems Stated Complaint: sinus pressure, sore throat,cough Time Seen by Provider: 12/18/23 17:20 Source: patient and RN notes reviewed Mode of arrival: ambulatory Limitations: no limitations History of Present Illness MD elicited complaint: cough and sore throat Related Data Allergies Allergy/AdvReac Type Severity Reaction Status Date / Time adhesive Allergy Intermediate Hives Verified 12/18/23 17:03 latex Allergy Intermediate Hives Verified 12/18/23 17:03 Penicillins Allergy Intermediate Hives Verified 12/18/23 17:03 Review of Systems Review of Systems: CONSTITUTIONAL: Denies malaise, chills, sweats, or fever. EYES: Denies visual changes, redness, or discharge. ENT: Reports rhinorrhea, congestion, sinus pain, otalgia and sore throat. CARDIOVASCULAR: Denies chest pain, palpitations, or edema. RESPIRATORY: Reports cough. Denies dyspnea. GASTROINTESTINAL: Denies abdominal pain, nausea, vomiting, diarrhea SKIN: Denies rash or itching. MUSCULOSKELETAL: Denies myalgia. NEUROLOGIC: Denies headache. All systems reviewed & are unremarkable except as noted in HPI and below PMFSH Past Medical History Medical History Anxiety disorder, unspecified delivery delivered Dietary counseling and surveillance (09/04/15) Generalized anxiety disorder HELLP syndrome Other viral warts Overweight (06/04/15) Rhinitis, chronic Tooth pain Surgical History Surgical History H/O section X4 Family History Family History Mother Hypertension Father Patient's father is in good health Sibling Patient's sister is in good health Patient's brother is in good health Other Diabetes mellitus Family history of lung cancer Social History Social History Smoking status: Never smoker Tobacco type: cigarettes Second hand tobacco smoke exposure: No Alcohol intake: current Substance use: never Living arrangements: with family 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 There is no relevant family history pertinent to the presenting complaint Exam Narrative: GENERAL: Well-appearing, well-nourished, and in no acute distress. HEAD: Normocephalic EYES: PERRLA, conjunctivae clear ENT: Nares clear, turbinates edematous and erythematous, clear discharge. Mucous membranes moist. TM pearly rivera with dull light reflex bilaterally; no tragal tenderness. Oropharynx not erythematous without lesions. Tonsils not enlarged and without exudate, no drooling, no hoarseness, no trismus, uvula midline. NECK: Supple. No lymphadenopathy CHEST: Clear to auscultation, breath sounds equal. No wheezing, rhonchi, rales, or stridor. No respiratory distress, speaks in full sentences. HEART: Regular rate and rhythm. No murmur heard. SKIN: Warm, dry, no rash. NEURO: Alert and oriented x3. PSYCH: Normal mood and affect Course Course Emergency Course: Patient is aware of diagnosis, understands and agrees to treatment plan. Anticipatory guidance given. Patient agrees to follow-up as directed and is aware of reasons to seek care at the emergency department. Portions of this record may have been created with voice recognition software Level of Care: Express Care Visit Vital Signs Vital signs: Vital Signs Temperature 98.9 F 12/18/23 16:11 Pulse Rate 84 12/18/23 16:11 Respiratory Rate 16 12/18/23 16:11 Blood Pressure 122/75 12/18/23 16:11 Pulse Oximetry 99 12/18/23 16:11 Oxyg
--- NOTE | 2023-12-18 17:22 | ED.EYEPROB ---
HPI - Eye Problem General Chief complaint: Eye Problems Stated complaint: sinus pressure, sore throat,cough Time Seen by Provider: 12/18/23 17:20 Source: patient and RN notes reviewed Mode of arrival: ambulatory Limitations: no limitations History of Present Illness HPI Narrative: 38-year-old female presents with concern for right eyelid redness, itchiness. Reports this happened after she was outside at a pumpkin patch. She denies the eye itself is itchy, irritated, red. Denies drainage. She denies intervention. She also reports she was treated for bronchitis about a week ago and most symptoms have resolved but she continues have sinus pressure. She takes Claritin on a daily basis and she is taking Claritin for a long time. She reports she does have bad allergy issues. MD chief complaint: other (eyelid redness) Related Data Allergies Allergy/AdvReac Type Severity Reaction Status Date / Time adhesive Allergy Intermediate Hives Verified 12/18/23 17:03 latex Allergy Intermediate Hives Verified 12/18/23 17:03 Penicillins Allergy Intermediate Hives Verified 12/18/23 17:03 Review of Systems Review of Systems: CONSTITUTIONAL: Denies malaise, chills, sweats, or fever. EYES: Denies visual changes. Reports redness, irritation, discharge. ENT: Reports rhinorrhea, congestion. Denies otalgia or sore throat. SKIN: Reports left upper eyelid itching and redness with intermittent swelling NEUROLOGIC: Denies numbness, weakness, or headache. PSYCHIATRIC: Denies anxiety or depression. All systems reviewed & are unremarkable except as noted in HPI and below PMFSH Past Medical History Medical History Anxiety disorder, unspecified delivery delivered Dietary counseling and surveillance (09/04/15) Generalized anxiety disorder HELLP syndrome Other viral warts Overweight (06/04/15) Rhinitis, chronic Tooth pain Surgical History Surgical History H/O section X4 Family History Family History Mother Hypertension Father Patient's father is in good health Sibling Patient's sister is in good health Patient's brother is in good health Other Diabetes mellitus Family history of lung cancer Social History Social History Smoking status: Never smoker Tobacco type: cigarettes Second hand tobacco smoke exposure: No Alcohol intake: current Substance use: never Living arrangements: with family 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 There is no relevant family history pertinent to the presenting complaint Exam Narrative: GENERAL: Well-appearing, well-nourished, and in no acute distress. HEAD: Normocephalic, atraumatic. EYES: PERRLA, sclera clear, and EOMI. No nystagmus. Bilateral conjunctivae injected. Right Upper and lower eyelid unremarkable, no periorbital edema noted. Left upper eyelid erythematous with mild superficial edema ENT: Nares clear. Mucous membranes moist. TM pearly rivera with sharp light reflex bilaterally; no tragal tenderness. NECK: Supple. CHEST: No respiratory distress. Speaks in full sentences. HEART: Regular rate and rhythm. SKIN: Warm, dry, no visible rash. NEURO: Alert and oriented x3. PSYCH: Normal mood and affect Course Course Emergency Course: Patient is aware of diagnosis, understands and agrees to treatment plan. Anticipatory guidance given. Patient agrees to follow-up as directed and is aware of reasons to seek care at the emergency department. Portions of this r
== END 2023-12-18 17:39 | disposition home or self-care (01) ==
PROVIDERS: Emergency Provider Nurse Practitioner; PCP Nurse Practitioner Family
DX: H01.9 Unspecified inflammation of eyelid (principal); J30.9 Allergic rhinitis, unspecified
CPT/HCPCS: 99213; G0463

== ENCOUNTER 2024-01-23 16:41 | Emergency (ER) | payer OTHER, MEDICAID, SELFPAY ==
[2024-01-23 17:33] VITALS: BP 119/76; PULSE 78; RESP 20; TEMP 37; O2SAT 99
--- NOTE | 2024-01-23 17:50 | ED.SKABFB ---
HPI - Skin/Abscess/Foreign Bdy General Chief complaint: Skin/Abscess/Foreign Body Stated complaint: Right Hand Finger Pain Time Seen by Provider: 01/23/24 17:32 Source: patient and RN notes reviewed Mode of arrival: ambulatory Limitations: no limitations History of Present Illness HPI narrative: Patient presents today complaining of an infection around the you right 3rd fingernail x2 days that has been worsening since onset. Currently rates her pain 4/10. She has applied Prid Salve without relief. States she does bite her nails frequently. Related Data Allergies Allergy/AdvReac Type Severity Reaction Status Date / Time adhesive Allergy Severe burn Verified 01/23/24 17:50 latex Allergy Intermediate Hives Verified 01/23/24 17:03 Penicillins Allergy Intermediate Hives Verified 01/23/24 17:03 Review of Systems Review of Systems: CONSTITUTIONAL: Denies body aches, fever, chills, or sweats. EYES: Denies visual changes, redness, or discharge. ENT: Denies rhinorrhea, congestion, sore throat, or otalgia. CARDIOVASCULAR: Denies chest pain, palpitations, or edema. RESPIRATORY: Denies cough or dyspnea. GASTROINTESTINAL: Denies abdominal pain, nausea, vomiting, or diarrhea. GENITOURINARY: Denies dysuria or hematuria. SKIN: Denies rash, itching, or wounds. MUSCULOSKELETAL: Denies back pain, joint pain, or myalgia. + fingernail infection NEUROLOGIC: Denies headache, numbness, tingling, or weakness. PSYCH: Denies depression or anxiety. PMFSH Past Medical History Medical History Anxiety disorder, unspecified delivery delivered Dietary counseling and surveillance (09/04/15) Generalized anxiety disorder HELLP syndrome Other viral warts Overweight (06/04/15) Rhinitis, chronic Tooth pain Surgical History Surgical History H/O section X4 Family History Family History Mother Hypertension Father Patient's father is in good health Sibling Patient's sister is in good health Patient's brother is in good health Other Diabetes mellitus Family history of lung cancer Social History Social History Smoking status: Never smoker Tobacco type: cigarettes Second hand tobacco smoke exposure: No Alcohol intake: current Substance use: never Living arrangements: with family 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 Please see nursing chart for further information. There is no relevant family history pertinent to the presenting complaint Exam Narrative: GENERAL: Well-appearing, well-nourished, and in no acute distress. HEAD: Normocephalic, atraumatic. EYES: EOMI. No redness or drainage. Conjunctivae normal. ENT: Mucous membranes pink and moist. NECK: Normal AROM. CHEST: No respiratory distress. EXTREMITIES: Right 3rd finger: Moderate paronychia to the nail fold with green purulent material noted under the skin. No subungual abscess noted. Erythema noted proximal to the green material. Mildly tender to palpation. Distal sensation intact. Capillary refill normal. Full range of motion of the finger. No active drainage. SKIN: Warm, dry, no rash. Capillary refill normal. Normal skin turgor. NEURO: No focal deficits. Alert and oriented x3. Gait steady. PSYCH: Normal affect. No signs of depression or anxiety. Course Course Level of Care: Express Care Visit Vital Signs Vital signs: Vital Signs Temperature 98.6 F 01/23/24 17:33 Pulse Rate 78 01/23/24 17:33 Respiratory Rate 20 01/23/24 17:33 Blood Pressure 119/76 01/23/24 17:33 Pulse Oximetry 99 01/23/24 17:33 Oxygen Delivery Room Air 01/23/24 17:33 Temperature 98.6 F 01/23/24 17:33 Pulse Rate 78 01/23/24 17:33 Respiratory Rate 20 01/23/24 17:33 Blood Pressure 119/76 01/23/24 17:33 Pulse Oximetry 99 01/23/24 17:33 Oxygen Delivery Room Air 01/23/24 17:33 Reviewed Procedures Abscess I/D upper extremity: Date of Incision: 01/23/24 Time of Incision: 17:53 Side (if applicable): right (3rd finger paronychia) Local Anesthetic: none (Patient declined) Technique: incised with #11 blade Irrigation: No Packing used?: none I&D Results: Pus Abcess I&D Additional Comments: Patient tolerated procedure well MDM - Skin/Abscess/Foreign Bdy MDM Narrative Medical decision making narrative: Paronychia lanced and drained. Dressed with nonadherent dressing. Care instructions given. Anticipatory guidance given. Patient will be placed on a course of Bactrim Differential Diagnosis Differential diagnosis: Likely abscess of skin or subcutaneous tissue, cellulitis and other (Paronychia) Critical Care Time Critical Care Time Critical Care Time: No Discharge Plan Discharge Clinical Impression: Paronychia Patient Disposition: Home, Self-Care Condition: Stable Instructions: Antibiotic Form, Paronychia (ED) Additional Instructions: Your infection has min drained. Wash with soap and water daily and keep covered until scabbed over. Take the Bactrim as prescribed. Try to stop chewing your finger nails. Follow up with your PCP with any additional concern.s Prescriptions: New sulfamethoxazole-trimethoprim [Bactrim DS] 800-160 mg tablet 1 tablet PO Q12H 7 Days Qty: 14 0RF Follow-up/Referrals: PHYSICIAN,NUCLEAR PROCESS ENGINEER [Primary Care Provider] - Time of Disposition: 17:57
== END 2024-01-23 18:05 | disposition home or self-care (01) ==
PROVIDERS: Emergency Provider Nurse Practitioner
DX: L03.011 Cellulitis of right finger (principal)
CPT/HCPCS: 10060; 99213; G0463

== ENCOUNTER 2024-05-10 19:13 | Emergency (ER) | payer MEDICAID, SELFPAY ==
--- NOTE | ~2024-05-10 | XR_ITS ---
EXAMINATION: XR chest 2V Exam Date/Time: 05/10/2024 19:50 CDT HISTORY: cough x 4 days. Comparison: None. RESULT: Lines, tubes, and devices: None. Lungs and pleura: Clear. Cardiomediastinal silhouette: Normal. Other: No acute osseous or upper abdominal finding. IMPRESSION: No acute cardiopulmonary process. Reviewed, dictated and finalized at location K.
[2024-05-10 19:21] VITALS: BP 135/99; PULSE 96; RESP 16; TEMP 37.2; O2SAT 100
--- NOTE | 2024-05-10 19:54 | ED_ITS ---
HPI - URI/Sore Throat General Chief Complaint: Upper Respiratory Infection Stated Complaint: Sinus Time Seen by Provider: 05/10/24 19:55 Source: patient, RN notes reviewed and old records reviewed Mode of arrival: ambulatory Limitations: no limitations History of Present Illness HPI Narrative: 39-year-old female presents to the [facility] with complaints sinus congestion, cough, body aches that started 3-4 days ago. Reports that she has tried [id number] cold medicine. Related Data Allergies Allergy/AdvReac Type Severity Reaction Status Date / Time adhesive Allergy Severe burn Verified 05/10/24 19:41 Penicillins Allergy Severe Swelling Verified 05/10/24 19:41 of Lip/Tongue/Throat latex Allergy Intermediate Hives Verified 05/10/24 19:41 sulfamethoxazole (From Allergy Mild Itching Verified 05/10/24 19:41 Bactrim) trimethoprim (From Bactrim) Allergy Mild Itching Verified 05/10/24 19:41 Review of Systems Review of Systems: All systems reviewed & are unremarkable except as noted in HPI and below Constitutional: Constitutional: Reports no additional constitutional complaints ENT: Reports as per HPI Cardiovascular: Cardiovascular: Reports no additional cardiovascular complaints, Denies chest pain and Denies dyspnea Respiratory: Respiratory: Reports as per HPI, Denies chest congestion, Reports cough and Denies dyspnea Musculoskeletal: Musculoskeletal: Reports no additional musculoskeletal complaints Integumentary/Breasts: Skin/Breast: Reports system reviewed and no additional complaints, except as docu PMFSH Past Medical History Medical History Tooth pain Rhinitis, chronic Overweight (06/04/15) Other viral warts Generalized anxiety disorder Dietary counseling and surveillance (09/04/15) Anxiety disorder, unspecified delivery delivered HELLP syndrome Surgical History Surgical History H/O section X4 Family History Family History Mother Hypertension Father Patient's father is in good health Sibling Patient's sister is in good health Patient's brother is in good health Other Diabetes mellitus Family history of lung cancer Social History Social History Smoking status: Never smoker Tobacco type: cigarettes Second hand tobacco smoke exposure: No Alcohol intake: current Substance use: never Living arrangements: with family 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 There is no relevant family history pertinent to the patient complaint. Exam Const: General: cooperative, healthy appearing, comfortable, no acute distress, well developed, alert and well nourished Nutritional Appearance: well nourished and obese Orientation/consciousness: patient oriented x3 Limitations: no limitations HENMT: Head: normal to inspection Ears: hearing grossly normal bilaterally, external ears normal, TM's normal bilaterally, EAC's normal, mastoids normal and no periauricular adenopathy Face/Nose/Sinus: Normal external nose present, Normal nares present and No nasal discharge present Mouth: Yes Normal oral and palatal mucosa present, Yes lip normal, Yes tongue normal and Yes moist mucous membranes Throat: posterior oropharynx normal, uvula midline and no uvular edema Eyes: General: appearance normal, both eyes and all related structures Alignment and Position: alignment normal Neck: Neck: normal visual inspection, full ROM, no lymphadenopathy and no meningeal signs Chest: Chest palpation & inspection: normal inspection of the chest Resp: Effort & Inspection: normal respiratory effort and able to speak in complete sentences Auscultation: clear to auscultation bilaterally, no crackles, no rales, no rhonchi and no wheezes Cardio: Rate: regular rate Skin: General skin exam: normal color and no rashes or lesions noted Neuro: General: patient oriented x3, gait normal, moves all extremities and no meningeal signs Cognition (Neuro): normal cognition Speech: normal speech Gait exam (Neuro): Normal gait present Extrem: General: normal to inspection, full ROM, capillary refill normal and normal gait Psych: Appearance: grossly normal and well kempt Mental Status: mental status grossly normal Speech and movement: Normal speech and movement present and Clear speech present Affect: normal affect Attitude: cooperative Course Course Level of Care: Express Care Visit Vital Signs Vital signs: Vital Signs Temperature 98.9 F 05/10/24 19:21 Pulse Rate 96 05/10/24 19:21 Respiratory Rate 16 05/10/24 19:21 Blood Pressure 135/99 H 05/10/24 19:21 Pulse Oximetry 100 05/10/24 19:21 Oxygen Delivery Room Air 05/10/24 19:21 Temperature 98.9 F 05/10/24 19:21 Pulse Rate 96 05/10/24 19:21 Respiratory Rate 16 05/10/24 19:21 Blood Pressure 135/99 H 05/10/24 19:21 Pulse Oximetry 100 05/10/24 19:21 Oxygen Delivery Room Air 05/10/24 19:21 Reviewed MDM - URI/Sore Throat MDM Narrative Medical decision making narrative: Patient sitting comfortably in exam room. Nontoxic, vitals stable. Patient in no acute distress. Patient presents with 3-4 day history of viral URI symptoms. Patient is COVID positive. All other tests are negative. Patient appropriate for outpatient treatment with close follow-up Discharge instructions reviewed with patient, as well as provided in writing per nursing staff. The instructions also include specific and strict return/GO TO THE ER as well as f/u information. All questions have been answered, and the patient deny any further questions with discharge and discharge plan. Some parts of this dictation were generated by voice recognition software and ma y contain typographical and/or grammatical inaccuracies. Differential Diagnosis Differential diagnosis: Likely upper respiratory infection, otitis media, sinusitis, viral infection, bronchitis, influenza and pharyngitis Lab Data Labs: Lab Results 05/10/24 Range/Units 19:56 POC Influenza A Ag Negative (Negative) POC Influenza B Ag Negative (Negative) POC SARS CoV-2 Ag Positive (Negative) Reviewed Imaging Data Radiologist's impression: EXAMINATION: XR chest 2V Exam Date/Time: 05/10/2024 19:50 CDT HISTORY: cough x 4 days. Comparison: None. RESULT: Lines, tubes, and devices: None. Lungs and pleura: Clear. Cardiomediastinal silhouette: Normal. Other: No acute osseous or upper abdominal finding. IMPRESSION: No acute cardiopulmonary process. Critical Care Time Critical Care Time Critical Care Time: No Discharge Plan Discharge Clinical Impression: COVID-19 Patient Disposition: Home, Self-Care Condition: Stable Instructions: Antibiotic Form, COVID-19 (Coronavirus Disease 2019) (ED) Additional Instructions: Your chest x-ray did not show signs of a pneumonia today Your rapid COVID test was positive Your rapid flu test was negative Your symptoms are due to a viral illness, which is not treated with antibiotics. Typically viral infections last 7-10 days, can linger for couple of weeks. It is very important to treat your symptoms. Drink plenty of water, Gatorade, Pedialyte, ice pops or Jell-O. -Alternate Tylenol and Motrin per package directions for fever or pain. You can alternate every 4 hours -Antihistamine medication such as Zyrtec/Claritin/Radha during the day can help improve symptoms. -doing daily nasal irrigations can help relieve pressure your sinuses. Things like a Neti pot -Use Flonase twice a day for 5 days then daily to help reduce the inflammation and dry up your sinuses. -You can also use Mucinex. Be sure to drink plenty of water with this medication at least 8 ounces with every dose and it is important to drink 8 to 10 glasses of water per day. Water is a natural decongestant -Eat and drink things that are easy to swallow, like tea or soup, or popsicles. -Oral rinses such as: Salt water gargles and/or may use topical anesthetic (eg. Chloraseptic spray) or lozenges to relieve dryness or throat pain). -Frequent hand washing or hand workers compensation specialist is one of the best ways to prevent spread of infection. -Using a vaporizer or humidifier at night will also help thin secretions and help with coughing up phlegm. -Follow up with primary care provider in 7-10 days if condition is not improving - For new or worsening symptoms go directly to the nearest ER Patient Language: Brazilian Follow-up/Referrals: PHYSICIAN,GARAGEMAN [Primary Care Provider] - Stand Alone Forms: Work/School Release IP Time of Disposition: 20:15
[2024-05-10 19:58] LABS: EDCOVIDSCREEN Positive (Negative); EDINFLUASCREEN Negative (Negative); EDINFLUBSCREEN Negative (Negative)
== END 2024-05-10 20:19 | disposition home or self-care (01) ==
PROVIDERS: Emergency Provider Nurse Practitioner
DX: U07.1 COVID-19 (principal)
CPT/HCPCS: 71046; 87426; 87804; 99213; G0463

== ENCOUNTER 2024-10-21 08:23 | Emergency (ER) | payer BC, MEDICAID, SELFPAY ==
--- NOTE | 2024-10-21 08:29 | ED.DENTAL ---
HPI - Dental/Oral General Chief complaint: Dental/Oral Stated complaint: tooth pain/lump on right side of ear Time Seen by Provider: 10/21/24 08:29 Source: patient, RN notes reviewed and old records reviewed Mode of arrival: ambulatory Limitations: no limitations History of Present Illness HPI Narrative: 39-year-old female presents to the [facility] with right lower dental pain, right upper dental pain. Patient with very poor dentition. Has erythema to the upper and lower gingiva as well as decayed teeth. Patient worried on a lump that is next to her right ear as well. Related Data Allergies Allergy/AdvReac Type Severity Reaction Status Date / Time adhesive Allergy Severe burn Verified 10/21/24 08:42 Penicillins Allergy Severe Swelling Verified 10/21/24 08:42 of Lip/Tongue/Throat latex Allergy Intermediate Hives Verified 10/21/24 08:42 sulfamethoxazole (From Allergy Mild Itching Verified 10/21/24 08:42 Bactrim) trimethoprim (From Bactrim) Allergy Mild Itching Verified 10/21/24 08:42 Review of Systems Review of Systems: All systems reviewed & are unremarkable except as noted in HPI and below Constitutional: Constitutional: Reports no additional constitutional complaints ENT: Reports as per HPI Cardiovascular: Cardiovascular: Reports no additional cardiovascular complaints, Denies chest pain and Denies dyspnea Respiratory: Respiratory: Reports no additional respiratory complaints, Denies chest congestion, Denies cough and Denies dyspnea Musculoskeletal: Musculoskeletal: Reports no additional musculoskeletal complaints Integumentary/Breasts: Skin/Breast: Reports system reviewed and no additional complaints, except as docu PMFSH Past Medical History Medical History Tooth pain Rhinitis, chronic Overweight (06/04/15) Other viral warts Generalized anxiety disorder Dietary counseling and surveillance (09/04/15) Anxiety disorder, unspecified delivery delivered HELLP syndrome Surgical History Surgical History H/O section X4 Family History Family History Mother Hypertension Father Patient's father is in good health Sibling Patient's sister is in good health Patient's brother is in good health Other Diabetes mellitus Family history of lung cancer Social History Social History Smoking status: Never smoker Tobacco type: cigarettes Second hand tobacco smoke exposure: No Alcohol intake: current Substance use: never Living arrangements: with family 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 There is no relevant family history pertinent to the patient complaint. Exam Const: General: cooperative, healthy appearing, comfortable, no acute distress, well developed, alert and well nourished Nutritional Appearance: well nourished and obese Orientation/consciousness: patient oriented x3 Limitations: no limitations HENMT: Head: normal to inspection Ears: hearing grossly normal bilaterally, external ears normal, TM's normal bilaterally, EAC's normal, mastoids normal and other (Swollen lymph node preauricular) Face/Nose/Sinus: Normal external nose present and Normal nares present Mouth: Yes Normal oral and palatal mucosa present, Yes lip normal, Yes tongue normal and Yes moist mucous membranes Teeth and gingiva: gingiva abnormal edematous and poor dentition Throat: posterior oropharynx normal Eyes: General: appearance normal, both eyes and all related structures Alignment and Position: alignment normal Neck: Neck: normal visual inspection, full ROM, no lymphadenopathy and no meningeal signs Chest: Chest palpation & inspection: normal inspection of the chest Resp: Effort & Inspection: normal respiratory effort and able to speak in complete sentences Auscultation: clear to auscultation bilaterally, no crackles, no rales, no rhonchi and no wheezes Cardio: Rate: regular rate Skin: General skin exam: normal color and no rashes or lesions noted Neuro: General: patient oriented x3, gait normal, moves all extremities and no meningeal signs Cognition (Neuro): normal cognition Speech: normal speech Gait exam (Neuro): Normal gait present Extrem: General: normal to inspection, full ROM, capillary refill normal and normal gait Psych: Appearance: grossly normal and well kempt Mental Status: mental status grossly normal Speech and movement: Normal speech and movement present and Clear speech present Affect: normal affect Attitude: cooperative Course Course Level of Care: Express Care Visit Vital Signs Vital signs: Vital Signs Temperature 97.7 F 10/21/24 08:30 Pulse Rate 69 10/21/24 08:30 Respiratory Rate 20 10/21/24 08:30 Blood Pressure 123/66 10/21/24 08:30 Pulse Oximetry 99 10/21/24 08:30 Oxygen Delivery Room Air 10/21/24 08:30 Temperature 97.7 F 10/21/24 08:30 Pulse Rate 69 10/21/24 08:30 Respiratory Rate 20 10/21/24 08:30 Blood Pressure 123/66 10/21/24 08:30 Pulse Oximetry 99 10/21/24 08:30 Oxygen Delivery Room Air 10/21/24 08:30 Reviewed MDM - Dental/Oral MDM Narrative Medical decision making narrative: Patient sitting in exam room. Patient is nontoxic, vitals stable. Patient with very poor dentition. Concern for dental infection both upper and lower Patient appropriate for outpatient treatment with antibiotics, penicillin allergy, will prescribe clinda Discharge instructions reviewed with patient, as well as provided in writing per nursing staff. The instructions also include specific and strict return/GO TO THE ER as well as f/u information. All questions have been answered, and the patient deny any further questions with discharge and discharge plan. Some parts of this dictation were generated by voice recognition software and may contain typographical and/or grammatical inaccuracies. Differential Diagnosis Differential diagnosis: Likely gingival abscess, dental caries, toothache and dental abscess Critical Care Time Critical Care Time Critical Care Time: No Discharge Plan Discharge Clinical Impression: Toothache, Dental decay, Dental infection Patient Disposition: Home Condition: Stable Instructions: Antibiotic Form, Dental Abscess (ED) Additional Instructions: Finish the entire course of antibiotics While on antibiotics it is important that you take a probiotic or eat a yogurt a day to help reduce side effects Use mouthwash twice daily After every time you eat be sure to use salt water rinses. Apply ice to face to help with pain. Take Tylenol 650 mg alternating with Motrin 600 mg as needed for pain. You can alternate every 4 hours You need to follow-up with a dental provider as soon as possible for further evaluation and treatment. A list of dental providers has been given to you Follow up with a Primary Care Provider (PCP) about medical needs. A PCP can help keep you healthy by preventive medicine and screening. Go to the ER for New or worsening symptoms. Patient Language: Angolan Prescriptions: New clindamycin HCl [Cleocin HCl] 300 mg capsule 300 mg PO TID 7 Days Qty: 21 0RF ibuprofen 600 mg tablet 600 mg PO TID PRN (Reason: fever or pain) Qty: 30 0RF Follow-up/Referrals: Herrera,Ronn Nixon APRN [Primary Care Provider, Unknown] - 2 Weeks Time of Disposition: 08:45
[2024-10-21 08:30] VITALS: BP 123/66; PULSE 69; RESP 20; TEMP 36.5; O2SAT 99
== END 2024-10-21 08:52 | disposition home or self-care (01) ==
PROVIDERS: Emergency Provider Nurse Practitioner; PCP Nurse Practitioner Family
DX: K02.9 Dental caries, unspecified (principal); K04.7 Periapical abscess without sinus
CPT/HCPCS: 99213; G0463

== ENCOUNTER 2024-12-17 08:06 | Emergency (ER) | payer BC, MEDICAID, SELFPAY ==
--- NOTE | 2024-12-17 08:08 | ED_ITS ---
HPI - Dental/Oral General Chief complaint: Dental/Oral Stated complaint: Dental Pain Time Seen by Provider: 12/17/24 08:07 Source: patient Mode of arrival: ambulatory Limitations: no limitations History of Present Illness HPI Narrative: Patient is a 39-year-old female who presents with right upper and right lower dental pain. Denies any fever, chills, nausea, vomiting, diarrhea. Patient has significant dental decay from a toxic chemical that attached itself to teeth that has worsened over the past year. Patient has dental appointment the end of December to have teeth pulled. Related Data Allergies Allergy/AdvReac Type Severity Reaction Status Date / Time adhesive Allergy Severe burn Verified 12/17/24 08:14 Penicillins Allergy Severe Swelling Verified 12/17/24 08:14 of Lip/Tongue/Throat latex Allergy Intermediate Hives Verified 12/17/24 08:14 sulfamethoxazole (From Allergy Mild Itching Verified 12/17/24 08:14 Bactrim) trimethoprim (From Bactrim) Allergy Mild Itching Verified 12/17/24 08:14 Review of Systems 2 Review of Systems: All systems reviewed & are unremarkable except as noted in HPI and below Constitutional: Constitutional: Denies body ache(s), Denies fever(s), Denies headache(s), Denies malaise and Denies weakness Eyes: Eyes: Denies loss of vision ENT: Denies otalgia, Reports facial pain (jaw), Denies headache(s), Denies nasal discharge, Denies sinus pain and Denies sore throat Cardiovascular: Cardiovascular: Denies chest pain, Denies irregular heart rhythm and Denies dyspnea Respiratory: Respiratory: Denies dyspnea Gastrointestinal: Gastrointestinal: Denies abdominal pain, Denies melena, Denies hematochezia, Denies diarrhea, Denies nausea and Denies vomiting Musculoskeletal: Musculoskeletal: Denies back pain, Denies myalgias and Denies arthralgias Integumentary/Breasts: Skin/Breast: Denies pruritus and Denies rash Neurologic: Denies headache(s), Denies loss of vision and Denies weakness Psychiatric: Psychiatric: Reports no additional psychiatric complaints PMFSH Past Medical History Medical History Tooth pain Rhinitis, chronic Overweight (06/04/15) Other viral warts Generalized anxiety disorder Dietary counseling and surveillance (09/04/15) Anxiety disorder, unspecified delivery delivered HELLP syndrome Surgical History Surgical History H/O section X4 Family History Family History Mother Hypertension Father Patient's father is in good health Sibling Patient's sister is in good health Patient's brother is in good health Other Diabetes mellitus Family history of lung cancer Social History Social History Smoking status: Never smoker Tobacco type: cigarettes Second hand tobacco smoke exposure: No Alcohol intake: current Substance use: never Living arrangements: with family 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 There is no relevant family history pertinent to the presenting complaint. Exam 2 Const: General: cooperative, healthy appearing, comfortable, no acute distress and well nourished Nutritional Appearance: well nourished O rientation/consciousness: patient oriented x3 Limitations: no limitations HENMT: Head: normal to inspection, normocephalic and atraumatic Ears: h earing grossly normal bilaterally, external ears normal, TM's normal bilaterally and mastoids normal bilaterally Face/Nose/Sinus: Normal external nose present, normal facial exam and face symmetric Face and sinus: normal facial exam and face symmetric Mouth: Yes Normal oral and palatal mucosa present, Yes lip normal, Yes tongue normal, Yes Normal salivary glands and ducts present and Yes moist mucous membranes Teeth and gingiva: abnormal tooth and associated gingiva (entire right upper and lower teeth) and poor dentition Teeth image: 1. Significant decay 2. Significant decay Other: The tooth in question is very carious and the gum is swollen and tender around it. There is no facial swelling, cervical or submandibular lymphadenopathy. The patient appears uncomfortable and in pain. Eyes: General: appearance normal, both eyes and all related structures A lignment and Position: alignment normal and position normal Periorbital: p eriorbital findings normal Eyelids: eyelids normal Pupils: Equal, round and reactive pupils present EOM: EOMs intact bilaterally Neck: Neck: normal visual inspection, full ROM, no lymphadenopathy and supple Chest: Chest palpation & inspection: normal inspection of the chest Resp: Effort & Inspection: normal respiratory effort and able to speak in complete sentences Auscultation: clear to auscultation bilaterally Cardio: Rate: regular rate Rhythm: regular rhythm Heart sounds: S1 normal heart sound present and S2 normal heart sound present GI: Inspection: normal to inspection Skin: General skin exam: normal color and no rashes or lesions noted Neuro: General: patient oriented x3 and moves all extremities Cranial nerves: Yes Equal, round and reactive pupils present Speech: normal speech Gait exam (Neuro): Normal gait present Extrem: General: normal to inspection, full ROM and no edema Psych: Appearance: grossly normal and well kempt Mental Status: mental status grossly normal Speech and movement: Normal speech and movement present Affect: normal affect Attitude: cooperative Thought process: Normal thought process present Course Course Emergency Course: Patient is aware of diagnosis, understands and agrees to treatment plan. Anticipatory guidance given. Patient agrees to follow-up as directed and is aware of reasons to seek care at the emergency department. Portions of this record may have been created with voice recognition software Level of Care: Express Care Visit Vital Signs Vital signs: Reviewed MDM - Dental/Oral MDM Narrative Medical decision making narrative: Patients pain and complaint coupled with physical findings are consistant with dentalgia and infection. There are no focal signs of space occupying lesions that are compromising to the airway; no dysphagia, odynophagia, dysphonia, or dyspnea. No uvular deviation or soft palate edema. Patient is non-toxic appearing. The floor of the mouth is soft with no signs of Shayne's Angina; no induration below mandible, no neck pain. Patient is without trismus or drooling and able to swallow secretions. Patient is felt appropriate for discharge home with dental follow up. Differential Diagnosis Differential diagnosis: Likely gingival abscess, dental caries, toothache, dental abscess and fracture of tooth Medical Records Attestation: I reviewed the patient's medical records. Discharge Plan Discharge Clinical Impression: Dental infection, Dental decay Patient Disposition: Home Condition: Stable Instructions: Dental Abscess (ED) Additional Instructions: Take antibiotic until it's gone. Brushing teeth at least twice daily with gentle flossing. Avoid temperature extremes---when you eat. Salt gargle to rinse your mouth after every meal You may apply ice to the face to reduce pain/swelling. For pain, you may take: Tylenol 650-1000mg by mouth every 4-6 hours. Do not exceed 4000mg in 24 hours. Advil (Ibuprofen) 600 mg by mouth every 6 hours. Do not exceed 2400mg in 24 hours. Also, recommend regular dental check up one-two times a year to prevent tooth decay and other periodontal disease. Follow-up with the dentist as soon as possible--see the list provided Patient Language: Macedonian Prescriptions: New clindamycin HCl 300 mg capsule 300 mg PO Q8H 10 Days Qty: 30 0RF ibuprofen 600 mg tablet 600 mg PO TID PRN (Reason: pain) Qty: 30 0RF Follow-up/Referrals: Herrera,Ronn Nixon APRN [Primary Care Provider, Unknown] - 3 Days Time of Disposition: 08:51
[2024-12-17 08:14] VITALS: BP 126/77; PULSE 89; RESP 18; TEMP 36.7; O2SAT 100
== END 2024-12-17 08:58 | disposition home or self-care (01) ==
PROVIDERS: Emergency Provider Nurse Practitioner Family; PCP Nurse Practitioner Family
DX: K04.7 Periapical abscess without sinus (principal); K02.9 Dental caries, unspecified
CPT/HCPCS: 99213; G0463

== ENCOUNTER 2025-01-13 17:18 | Emergency (ER) | payer BC, MEDICAID, SELFPAY ==
[2025-01-13 17:26] VITALS: BP 124/86; PULSE 82; RESP 18; TEMP 36.7; O2SAT 100
--- NOTE | 2025-01-13 18:01 | ED_ITS ---
HPI - URI/Sore Throat General Chief Complaint: Urogenital-Female Stated Complaint: urinary irritation Time Seen by Provider: 01/13/25 17:19 Source: patient Mode of arrival: ambulatory Limitations: no limitations History of Present Illness HPI Narrative: Alyssa is a 39-year-old female patient presenting to the clinic today with complaints burning with urination intermittently, dark urine, low back pain, nasal congestion, headache, and eyes are burning x 4 days. She reports no fevers, chills, or body aches. No concern for STIs. Has had tubal ligation. No concern for . Denies any vaginal discharge or odor. No nausea, vomiting, or diarrhea. Related Data Home Medications ?Medication ?Instructions ?Recorded ?Confirmed ?Last Taken ?Type No Home Medications 01/13/25 01/13/25 U nknown History Allergies Allergy/AdvReac Type Severity Reaction Status Date / Time adhesive Allergy Severe burn Verified 01/13/25 17:27 Penicillins Allergy Severe Swelling Verified 01/13/25 17:27 of Lip/Tongue/Throat latex Allergy Intermediate Hives Verified 01/13/25 17:27 sulfamethoxazole (From Allergy Mild Itching Verified 01/13/25 17:27 Bactrim) trimethoprim (From Bactrim) Allergy Mild Itching Verified 01/13/25 17:27 Review of Systems Review of Systems: Pertinent positives per HPI. Patient denies any fever, chills, rash, visual changes, dizziness, sore throat, shortness of breath, chest pain, palpitations, nausea, vomiting, diarrhea, constipation, or any abdominal pain. PMFSH Past Medical History Medical History Tooth pain Rhinitis, chronic Overweight (06/04/15) Other viral warts Generalized anxiety disorder Dietary counseling and surveillance (09/04/15) Anxiety disorder, unspecified delivery delivered HELLP syndrome Surgical History Surgical History H/O section X4 Family History Family History Mother Hypertension Father Patient's father is in good health Sibling Patient's sister is in good health Patient's brother is in good health Other Diabetes mellitus Family history of lung cancer Social History Social History Smoking status: Never smoker Tobacco type: cigarettes Second hand tobacco smoke exposure: No Alcohol intake: current Substance use: never Living arrangements: with family 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 There is no relevant family history pertinent to the patient complaint. Exam Narrative: General: Well-developed, morbidly obese, in no apparent distress Head: Normocephalic, atraumatic Eyes: Pupils equally round and reactive to light bilaterally, EOM intact, sclera and conjunctive clear, no discharge, lids normal Ears: TMs intact and clear, ear canals clear, no drainage, grossly hearing normal. Nose: Nares patent, clear discharge, mild inflammation, no sinus tenderness. Mouth: Oropharynx without lesions or masses, good dentition, MMM. Neck: Supple, trachea midline, no enlargement of anterior or posterior cervical nodes, no thyroid masses or goiter palpable. Cardio: Regular rate and rhythm, s1 and s2 normal, no murmur appreciated. Resp: Clear to auscultation bilaterally anteriorly and posteriorly, no rhonchi, rales, wheezing or rubs Abdomen: Soft, pliable, bowel sounds present in all quadrants, suprapubic tender to palpation, no organomegly, bilat CVAT tenderness. Course Course Emergency Course: Portions of this record may have been created with voice recognition software. Level of Care: Express Care Visit Vital Signs Vital signs: Vital Signs Temperature 36.7 C 01/13/25 17: Pulse Rate 82 01/13/25 17: Respiratory Rate 18 01/13/25 17: Blood Pressure 124/86 01/13/25 17: Pulse Oximetry 100 01/13/25 17:26 Oxygen Delivery Room Air 01/13/25 17: Temperature 36.7 C 01/13/25 17:26 Pulse Rate 82 01/13/25 17: Respiratory Rate 18 01/13/25 17:26 Blood Pressure 124/86 01/13/25 17:26 Pulse Oximetry 100 01/13/25 17:26 Oxygen Delivery Room Air 01/13/25 17:26 Vital signs reviewed MDM - URI/Sore Throat MDM Narrative Medical decision making narrative: At the time of visit patient is resting comfortably on the exam table. Patient appears to be nontoxic. Complaints burning with urination intermittently, dark urine, low back pain, nasal congestion, headache, and eyes are burning x 4 days. She reports no fevers, chills, or body aches. No concern for STIs. Has had tubal ligation. No concern for . Denies any vaginal discharge or odor. No nausea, vomiting, or diarrhea. COVID, influenza, and urine dip was ordered. On exam patient has bilateral TMs intact and clear, nares patent, clear nasal drainage, mild anterior turbinate inflammation, oral pharynx normal, lung sounds are clear, heart rates regular rate and rhythm, abdomen soft, pliable, nondistended, nontender, mild bilateral CVAT tenderness Labs: COVID, influenza, and urine dip performed. COVID and influenza testing was negative. Urine dip was negative for any sign of infection or blood. Plan: I suspect patient has URI/dysuria. Supportive measures were discussed with the patient and they voiced understanding discharge instructions and agrees to treatment plan. Return precautions reviewed Differential Diagnosis Differential diagnosis: Likely upper respiratory infection, otitis media, sinusitis, viral infection, bronchitis, influenza, pharyngitis and other (UTI, pyelonephritis, low back pain) Lab Data Labs: Lab Results 01/13/25 01/13/25 Range/Units 17:30 18:04 POC Urine Color Yellow POC Urine Clarity Clear POC Urine pH 6.0 POC Ur Specif [place] 1.020 POC Urine Protein Negative (Negative) POC Ur Glucose (UA) Negative (Negative) POC Urine Ketones Negative (Negative) POC Urine Blood Negative (Negative) POC Urine Nitrite Negative (Negative) POC Urine Bilirubin Negative (Negative) POC Urine Urobilinogen 0.2 POC U Leukocyte Esteras Negative (Negative) POC Influenza A Ag Negative (Negative) POC Influenza B Ag Negative (Negative) POC SARS CoV-2 Ag Negative (Negative) Discharge Plan Discharge Clinical Impression: Dysuria URI (upper respiratory infection) Qualifiers: URI type: unspecified URI Qualified Code(s): J06.9 - Acute upper respiratory infection, unspecified Patient Disposition: Home Condition: Stable Instructions: Antibiotic Form, Dysuria (ED), Cold Symptoms (ED) Additional Instructions: Urinalysis is negative for any sign of infection, blood, or protein. COVID and influenza testing was negative. Increase fluids and stay well hydrated May take Tylenol or motrin as directed on bottle for pain/fever May use Flonase 1 spray in each nare daily May take OTC antihistamines such as Zyrtec or Claritin daily as directed on tona ttle May apply Vicks vapor rub to chest to open sinuses Sinus rinses for congestion Cepacol spray, cough drops, throat lozenges, warm tea with honey/lemon, gargle salt water to soothe throat BRAT diet for diarrhea Clear liquids x 24 hours then advance as tolerated for nausea/vomiting Go to the ED if you develop a worsening in your condition- high fever not controlled by Tylenol or Motrin, dehydration, weakness, lethargy, shortness of breath, or chest pain. Follow up with your PCP in 3-5 days if symptoms persist. Patient Language: Egyptian Prescriptions: No Action No Home Medications Follow-up/Referrals: Herrera,Ronn Nixon APRN [Primary Care Provider, Unknown] Time of Disposition: 18:03 Quality NIHSS Nursing Documentation ED NIHSS nursing documentation: reviewed/agree
[2025-01-13 18:07] LABS: EDUAAPPEAR Clear; EDUABILI Negative (Negative); EDUABLOOD Negative (Negative); EDUACOLOR1 Yellow; EDUAGLUCOSE Negative (Negative); EDUAKETONE Negative (Negative); EDUALEUKO Negative (Negative); EDUANITRATE Negative (Negative); EDUAPH 6.0; EDUAPROTEIN Negative (Negative); EDUASPGRAVITY 1.020; EDUAUROBILI 0.2
[2025-01-13 18:07] LABS: EDCOVIDSCREEN Negative (Negative); EDINFLUASCREEN Negative (Negative); EDINFLUBSCREEN Negative (Negative)
== END 2025-01-13 18:06 | disposition home or self-care (01) ==
PROVIDERS: Emergency Provider Nurse Practitioner Family; PCP Nurse Practitioner Family
DX: R30.0 Dysuria (principal); J06.9 Acute upper respiratory infection, unspecified; Z20.822 Contact with and (suspected) exposure to COVID-19
CPT/HCPCS: 81003; 87426; 87804; 99212; G0463